=== PATIENT | female | born 1990 | race Caucasian/White ===

== ENCOUNTER 2016-08-01 00:41 | Emergency (ER) | payer OTHER ==
--- NOTE | 2016-08-01 04:28 | ED ORDER SUMMARY ---
..... Patient: BECKY LYNCH OrderSheet [facility] VisitID: [id number] [address] [place] [address] 26y, F Registration Date/Time: 08/01/2016 ORDER SHEET Weight: 81.6 kg Allergies: Oxycodone GENERAL ORDERS: CBC w Diff Urgent (:08/01/2016 Stefan Jasso) (Ack 1:23 ALawrence ER Tech1) (2:08 ALawrence ER Tech1) CMP Urgent (:08/01/2016 Stefan Jasso) (Ack 1:23 ALawrence ER Tech1) (2:08 ALawrence ER Tech1) UA-Culture if indicated Urgent (:08/01/2016 Stefan Jasso) (Ack 1:23 ALawrence ER Tech1) (2:35 EBonham) Urine Drug Screen Urgent (:08/01/2016 Stefan Jasso) (Ack 1:23 ALawrence ER Tech1) (2:35 EBonham) Urine Urgent (:08/01/2016 Stefan Jasso) (Ack 1:23 ALawrence ER Tech1) (2:35 EBonham) Ethyl Alcohol Urgent (:08/01/2016 Stefan Jasso) (Ack 1:25 ALawrence ER Tech1) (2:08 ALawrence ER Tech1) MEDICATION ORDERS: IV FLUIDS: Ativan IV 1 mg (HIGH ALERT MEDICATION, NOW) (:08/01/2016 Stefan Jasso) (1:57 EBonham) IV Saline Lock (:08/01/2016 Stefan Jasso) (1:56 EBonham) IV NS : initial bolus none -, then 1000 mL/hr for X1 (NOW) (02:51 08/01/2016 Stefan Jasso) (Ack 2:56 HSoule) (3:04 HSoule) ORDER SHEET NOTES: [Electronically signed by Diane Villareal (04:44 08/01/2016)] [Electronically signed by Doroteo Mcclendon Dr. (05:50 08/01/2016)] [Electronically locked/signed by Diane Villareal (04:44 08/01/2016)]
--- NOTE | 2016-08-01 04:28 | ED NURSING NOTES ---
Clinical Report - Nurses [facility] [address] [place] [address] 08/01/2016 0:44 Patient: BECKY LYNCH TRIAGE Triage time 0050. Acuity: LEVEL 3. Chief Complaint: ALTERED MENTAL STATUS. Alert. CARLOS COMA SCORE: Kyle Coma Scale: 9- eyes do not open (1); best verbal response- incoherent speech (2); best motor response- obeys commands (6). --01: Diane Villareal 00:59 08/01/16. BP: 116/65. HR: 85. RR: 24. O2 saturation: 95%. Pain level now 0/10. --01:02 Diane Villareal. Weight: 81.6 kg. Height/Length: 62 inches. BMI: 32.9. --00:58 Diane Villareal. Medications None. --01:00 Diane Villareal. Allergies Oxycodone. --01:00 Diane Villareal. History Arrived by private vehicle. Historian: family. Accompanied by family. This started just prior to arrival. ( Pt with large emesis and then began moaning, incomprehensible words, limp). Treatment [employer]: (EMS at scene and pt cleared to come by private vehicle). SOCIAL HX: Never smoker. Occasional alcohol use. History of drug use: marijuana. --01: Diane Villareal. PROBLEMS: Anxiety Reaction. --01: Diane Villareal. ADDITIONAL SURGERIES: Appendectomy. --01: Diane Villareal. Interventions ID band on patient. To treatment room. --01: Diane Villareal. PHYSICAL ASSESSMENT To room via wheelchair. Patient gowned. GENERAL / NEURO / PSYCH: Appears in distress. Decreased awareness. Patient's speech is abnormal. Patient appears well-nourished. RESPIRATORY: Respirations not labored. Breath sounds within normal limits. CVS: Normal sinus rhythm noted. Capillary refill less than 2 seconds. GI / : Abdomen soft and nontender. Bowel sounds within normal limits. SKIN: Skin is warm and dry. Normal skin turgor. --01:04 Diane Villareal. NURSING PROGRESS NOTES Call light placed in reach. Bed placed in lowest position. Brakes of bed on. Patient ready for evaluation- chart flagged. --01:05 Diane Villareal ( Failed hand drop test). --01:05 Diane Villareal EKG time: (00:58 AM). EKG was performed by a karlos and shown to the ED physician. --01:17 Ladonna Masters 01:25 08/01/2016 Site #1 started via IV in the left antecubital space with an 20g angiocath, with aseptic technique and good blood return; one attempt. Blood drawn: rainbow set. Labeled in the presence of the patient and sent to the lab. Saline lock flushed with 10 mL saline. --01:56 Diane Villareal 01:57 08/01/2016 Ativan (LORazepam) IVP 1 mg given. via site #1. Allergies verified, confirmed 5 rights and sedative warning given to the patient. IV patency established. IV site checked: no pain, redness, or swelling. IV flushed thoroughly pre- and post-medication administration. IVP given by RN. --:57 Diane Villareal 02:26 08/01/16. BP: 115/59. HR: 86. RR: 18. O2 saturation: 100%. --02:28 Diane Villareal In/out catheterization. During procedure hand hygiene observed and sterile equipment and aseptic technique used. Return of less than 50 mL yellow-colored clear urine; odor is normal. She tolerated procedure well. Patient ID band checked for patient name and birthdate: family confirmed. Instructions provided to collect clean catch urine. Catheterized urine collected; sample sent to lab for urinalysis, culture, drug screen and HCG. Specimen labeled in the presence of the patient. --02:28 Diane Villareal Reassessment after medication administered. She is calm and has had no adverse reaction. Overall patient status is improved- she states feels the same. --02:36 Diane Villareal 03:04 08/01/2016 Started bag #1 1000 mL IV Fluids IV NS (Saline); at 1000 mL/hr over 1 hour(s) via site #1. Allergies verified and confirmed 5 rights. IV patency established. IV site checked: no pain, redness, or swelling. IV flushed thoroughly pre- and post-medication administration. --03:04 Tucker Lisa The patient is calm and resting quietly. Overall patient status is the same- she states feels the same. --03:10 Diane Villareal ( Pt with wave motion hand shaking when touched and moved around, incomprehensible word, will awaken but not open eyes, moans on occasion). --03:11 Diane Villareal ( Discussed plan of care with patient. Patient family agreeable to plan. They will go home and request staff contact them as with patient status.). --04:05 TuckerQue barbournah 04:21 08/01/16. BP: 104/47. HR: 68. RR: 16. O2 saturation: 99%. --04:23 Diane Villareal Overall patient status is improved- she states feels better. ( Pt wide awake, fully conversing with staff, able to recall it starting as a panic attack, giggling, sts she wants to go home, Provider aware). --04:23 Diane Villareal ( Pt off monitor, ambulated without assistance around ER, ready to go, Fiance called for a ride). --04:34 Diane Villareal 04:34 08/01/2016 Site #1 removed upon discharge. Catheter intact. Pressure dressing applied. --04:34 Diane Villareal. DISPOSITION / DISCHARGE Departure time: 0. --04:43 Diane Villareal Condition at departure: improved and stable. No learning barriers present. Discharge instructions provided and reviewed with the patient. Reviewed medication(s). Patient verbalized understanding. Written instructions provided in Upper Sorbian. The patient was discharged by the physician. She was discharged home and accompanied by spouse. She left the Emergency Department ambulatory and via private vehicle. Spouse driving. --04:44 Diane Villareal. Locked/Released at 08/01/2016 4:44 by Diane Villareal,
--- NOTE | 2016-08-01 04:28 | ED ORDER SUMMARY ---
..... Patient: BECKY LYNCH OrderSheet [facility] VisitID: [id number] [address] [place] [address] 26y, F Registration Date/Time: 08/01/2016 ORDER SHEET Weight: 81.6 kg Allergies: Oxycodone GENERAL ORDERS: CBC w Diff Urgent (:08/01/2016 Stefan Jasso) (Ack 1:23 ALawrence ER Tech1) (2:08 ALawrence ER Tech1) CMP Urgent (:08/01/2016 Stefan Jasso) (Ack 1:23 ALawrence ER Tech1) (2:08 ALawrence ER Tech1) UA-Culture if indicated Urgent (:08/01/2016 Stefan Jasso) (Ack 1:23 ALawrence ER Tech1) (2:35 EBonham) Urine Drug Screen Urgent (:08/01/2016 Stefan Jasso) (Ack 1:23 ALawrence ER Tech1) (2:35 EBonham) Urine Urgent (:08/01/2016 Stefan Jasso) (Ack 1:23 ALawrence ER Tech1) (2:35 EBonham) Ethyl Alcohol Urgent (:08/01/2016 Stefan Jasso) (Ack 1:25 ALawrence ER Tech1) (2:08 ALawrence ER Tech1) MEDICATION ORDERS: IV FLUIDS: Ativan IV 1 mg (HIGH ALERT MEDICATION, NOW) (:08/01/2016 Stefan Jasso) (1:57 EBonham) IV Saline Lock (:08/01/2016 Stefan Jasso) (1:56 EBonham) IV NS : initial bolus none -, then 1000 mL/hr for X1 (NOW) (02:51 08/01/2016 Stefan Jasso) (Ack 2:56 HSoule) (3:04 HSoule) ORDER SHEET NOTES: [Electronically signed by Diane Villareal (04:44 08/01/2016)] [Electronically signed by Doroteo Mcclendon Dr. (05:50 08/01/2016)] [Electronically locked/signed by Diane Villareal (04:44 08/01/2016)]
--- NOTE | 2016-08-01 04:28 | ED CLINICAL REPORT ---
Clinical Report - Physicians/Mid Levels [facility] [address] [place] [address] 08/01/2016 0:44 Patient: BECKY LYNCH Time Seen: 00:47; initial patient contact. Arrived- By private vehicle. Historian- family. HISTORY OF PRESENT ILLNESS Chief Complaint: PALPITATIONS. This started just prior to arrival and is still present. Onset during emotional upset. It was abrupt in onset and has been constant. It is described as a fast and pounding heart beat. Modifying factors. Not worsened by anything. Not relieved by anything. No chest pain or discomfort, difficulty breathing or sweating episodes. She experienced syncope. ( Anxious). Similar symptoms previously: None. Recent medical care: Not recently seen/assessed. REVIEW OF SYSTEMS The patient has had nausea and vomiting. No abdominal pain, depression or diarrhea. She has had moderately altered mental status reported by family: stuporous. All systems otherwise negative, except as recorded above. PAST HISTORY Anxiety Reaction. SURGERIES: Appendectomy. SOCIAL HISTORY Never smoker. Occasional alcohol use. History of occasional drug use. ADDITIONAL NOTES The nursing notes have been reviewed. PHYSICAL EXAM Vital Signs: 08/01/2016 00:59 BP: 116/65. HR: 85. RR: 24. O2 saturation: 95%. Have been reviewed. Blood pressure normal. Heart rate normal. Tachypneic. Temperature normal. Oxygen saturation normal. Appearance: Patient in mild distress. Distress appears due to anxiety. Eyes: Pupils equal, round and reactive to light. Eyes normal inspection. ENT: Pharynx normal. Neck: Normal inspection. Neck supple. No meningeal signs. CVS: Normal heart rate and rhythm. Heart sounds normal. Respiratory: No respiratory distress. Breath sounds normal. Abdomen: Soft and nontender. Bowel sounds normal. No organomegaly. No mass. Skin: Skin warm and dry. Normal skin color. Extremities: No lower extremity edema. Neuro: Moderately altered mental status: stuporous. LABS, X-RAYS, AND EKG Laboratory Tests: UA-Culture if indicated: (VICKY: 08/01/2016 02:20) ( MsgRcvd 08/01/2016 02:42) Final results Test Result Flag Units (Reference) URINE COLOR YELLOW URINE APPEARANCE CLEAR URINE GLUCOSE NEGATIVE (NEGATIVE) URINE BILIRUBIN NEGATIVE (NEGATIVE) URINE KETONE NEGATIVE (NEGATIVE) URINE SPECIFIC GRAVITY >= 1.030 (1.010-1.030) URINE PH 5.5 (5.0-8.0) URINE PROTEIN NEGATIVE (NEGATIVE) URINE UROBILINOGEN 0.2 EU/dL (0.2-1.0) URINE NITRITE NEGATIVE (NEGATIVE) URINE BLOOD NEGATIVE (NEGATIVE) URINE LEUK ESTERASE NEGATIVE (NEGATIVE) URINE RBC RARE rbc/hpf (0-1) URINE WBC 0-1 wbc/hpf (0-1) URINE EPITHELIAL CELLS 0-1 EPI/hpf (0-5) URINE BACTERIA NONE SEEN (NONE SEEN) URINE COMMENT CULT NOT INDICATED 1+ MUCUSURINE CULTURES ARE SET-UP BASED ON THE FOLLOWING CRITERIA:POSITIVE NITRITEPOSITIVE LEUKOCYTE ESTERASEGREATER THAN 10 WHITE BLOOD CELLSMODERATE (2+) OR GREATER BACTERIA Urine: (VICKY: 08/01/2016 02:20) ( [facility] 08/01/2016 02:34) Final results Test Result Flag Units (Reference) URINE NEGATIVE CBC w Diff: (VICKY: 08/01/2016 01:00) ( [facility] 08/01/2016 01:31) Final results Test Result Flag Units (Reference) WHITE BLOOD COUNT 17.8 H K/uL (4.5-11.5) RED BLOOD COUNT 3.72 L M/uL (4.00-5.20) HEMOGLOBIN 11.0 L gm/dL (12.0-16.0) HEMATOCRIT 33.4 L % (36.0-46.0) MEAN CELL VOLUME 90 fL (80-100) MEAN CORPUSCULAR HGB 30 pg (26-34) MEAN CORPUSCULAR HGB CONC 33 g/dL (31-37) RED CELL DISTRIBUTION WIDTH 13.0 % (11.6-14.8) PLATELET COUNT 285 K/uL (150-400) NEUTROPHIL % 74.2 % (50-75) LYMPH % 20.8 L % (25-40) MONO % 4.1 % (3-14) EOSINOPHIL % 0.6 % (0-4) BASOPHIL % 0.3 % (0-2) Ethyl Alcohol: (VICKY: 08/01/2016 01:00) ( [facility] 08/01/[place] 01:42) Final results Test Result Flag Units (Reference) ETHYL ALCOHOL <3 L mg/dL (3-10) Urine Drug Screen: (VICKY: 08/01/2016 02:20) ( [facility] 08/01/2016 02:50) Final results Test Result Flag Units (Reference) AMPHETAMINE/METHAMPHETAMINE NEGATIVE (NEGATIVE) BARBITURATE NEGATIVE (NEGATIVE) BENZODIAZEPINE NEGATIVE (NEGATIVE) CANNABINOID POSITIVE H (NEGATIVE) COCAINE NEGATIVE (NEGATIVE) ECSTASY NEGATIVE (NEGATIVE) METHADONE NEGATIVE (NEGATIVE) OPIATE NEGATIVE (NEGATIVE) The urine drug screen is a qualitative screening test fordrug overdose and abuse. All screen results should beconsidered as presumptive.Drugs screened for are as follows:BenzodiazepinesCocaineAmphetamines/MetamphetaminesTHC (Tetrahydrocannabinol)OpiatesBarbituratesEcstasyMethadonePositive results are unconfirmed. For confirmation, notifythe lab for the specimen to be sent to the reference lab.All confirmations must be performed by a differentmethodology.The ingestion of natural herbal and plant productscontaining Ephedra/Ephedra metabolites can produce in urineone or more substances capable of cross reacting withamphetamine/methamphetamine immunoassays. These testsprovide a preliminary result only. A more specificalternative chemical method must be used to obtain aconfirmed analytical result. CMP: (VICKY: 08/01/2016 01:00) ( [facility] 08/01/2016 01:42) Final results Test Result Flag Units (Reference) GLUCOSE 172 H mg/dL (70-110) BUN 15 mg/dL (7-18) CREATININE 0.8 mg/dL (0.6-1.3) Estimated GFR >60 mL/min Estimated GFR- >60 mL/min Note: Persistent reduction over 3 months in eGFR<60 mL/min/1.73 m2 defines CKD. Patients with eGFR values>=60 mL/min/1.73 m2 may also have CKD if evidence ofpersistent proteinuria. Additional information may be foundat www.kidney.org. SODIUM 137 mmol/L (136-145) POTASSIUM 3.4 L mmol/L (3.5-5.1) CHLORIDE 101 mmol/L (98-107) CARBON DIOXIDE 25 mmol/L (21-32) CALCIUM 8.8 mg/dL (8.5-10.1) TOTAL PROTEIN 7.5 g/dL (6.4-8.2) ALBUMIN 3.6 g/dL (3.3-5.0) BILIRUBIN, TOTAL 0.2 mg/dL (0.0-1.0) ALKALINE PHOSPHATASE 50 U/L (46-116) AST (SGOT) 24 U/L (15-37) ALT (SGPT) 31 U/L (12-78) . PROGRESS AND PROCEDURES Course of Care: Pt'chuck gar' left with his mother and the pt almost immediately became completely lucid stating she was anxious and feels she had a panic attack. Disposition: Discharged home in good and improved condition. Condition: good. CLINICAL IMPRESSION Panic attack INSTRUCTIONS Your Current Medications: CONTINUE TAKING THE FOLLOWING MEDICATIONS: None*. Prescription Medications: Vistaril 50 mg: take 1 orally every 6 hours as needed for anxiety. Dispense twenty (20). No refill. Substitution is permissible. Follow-up: Follow up with your doctor in about two days. Call for an appointment. Screening today revealed the patient's blood pressure to be in the normal range. (Electronically signed by Doroteo Mcclendon Dr. 08/01/2016 5:50)
--- NOTE | 2016-08-01 05:50 | ED MED RECONCILIATION SUMMARY ---
Patient: BECKY LYNCH Medication Reconciliation Report [facility] VisitID: [id number] [address] [place] [address] 26y, F Registration Date/Time: 08/01/2016 Weight: 81.6 kg Height/Length: 62 in. BMI: 32.9 ALLERGIES: Oxycodone The patient's Home Medications are listed below: NONE. The source(s) of the original Home Medication information: Not obtained. The following Medications were given to the patient in the Emergency Department: Ativan [IVP] IVP 1 mg, administered: 08/01/2016 1:57:00 AM IV NS IV Fluids bolus 0, then 1000 mL/hr, administered: 08/01/2016 3:04:00 AM The following Medications were prescribed to the patient: Vistaril 50 mg: take 1 orally every 6 hours as needed for anxiety. Dispense twenty (20). No refill. Substitution is permissible. -- Doroteo Mcclendon Dr.
--- NOTE | 2016-08-01 05:50 | ED MAR SUMMARY ---
..... Medication Administration Record [facility] [address] [place] [address] Patient: BECKY LYNCH Visit ID: [id number] 26y, F Weight: 81.6 kg Height/Length: 62 in BMI: 32.9 ALLERGIES: Oxycodone Given 01:57 08/01/2016 Diane Villareal, Medication Administered: ATIVAN [IVP] (LORAZEPAM), Dose: 1 mg IVP, Site: #1 left AC. Medication Ordered: Ativan IV 1 mg (HIGH ALERT MEDICATION, NOW). Start 03:04 08/01/2016 Lisa Ceballos, Medication Administered: IV NS (SALINE), Dose: IV Fluids over 1 hour(s), Rate: 1000 mL/hr, Dispensed: 1000 mL bag, Site: #1 left AC. Medication Ordered: IV NS : initial bolus none -, then 1000 mL/hr for X1 (NOW).
--- NOTE | 2016-08-01 05:50 | ED MAR SUMMARY ---
..... Medication Administration Record [facility] [address] [place] [address] Patient: BECKY LYNCH Visit ID: [id number] 26y, F Weight: 81.6 kg Height/Length: 62 in BMI: 32.9 ALLERGIES: Oxycodone Given 01:57 08/01/2016 Diane Villareal, Medication Administered: ATIVAN [IVP] (LORAZEPAM), Dose: 1 mg IVP, Site: #1 left AC. Medication Ordered: Ativan IV 1 mg (HIGH ALERT MEDICATION, NOW). Start 03:04 08/01/2016 Lisa Ceballos, Medication Administered: IV NS (SALINE), Dose: IV Fluids over 1 hour(s), Rate: 1000 mL/hr, Dispensed: 1000 mL bag, Site: #1 left AC. Medication Ordered: IV NS : initial bolus none -, then 1000 mL/hr for X1 (NOW).
--- NOTE | 2016-08-01 05:50 | ED MED RECONCILIATION SUMMARY ---
Patient: BECKY LYNCH Medication Reconciliation Report [facility] VisitID: [id number] [address] [place] [address] 26y, F Registration Date/Time: 08/01/2016 Weight: 81.6 kg Height/Length: 62 in. BMI: 32.9 ALLERGIES: Oxycodone The patient's Home Medications are listed below: NONE. The source(s) of the original Home Medication information: Not obtained. The following Medications were given to the patient in the Emergency Department: Ativan [IVP] IVP 1 mg, administered: 08/01/2016 1:57:00 AM IV NS IV Fluids bolus 0, then 1000 mL/hr, administered: 08/01/2016 3:04:00 AM The following Medications were prescribed to the patient: Vistaril 50 mg: take 1 orally every 6 hours as needed for anxiety. Dispense twenty (20). No refill. Substitution is permissible. -- Doroteo Mcclendon Dr.
--- NOTE | 2016-08-01 05:50 | ED DISCHARGE INSTRUCTIONS ---
Patient: BECKY LYNCH General Instructions [facility] VisitID: [id number] [place] [address] 26y, F Registration Date/Time: 08/01/2016 Panic attack INSTRUCTIONS Your Current Medications: CONTINUE TAKING THE FOLLOWING MEDICATIONS: None*. Prescription Medications: Vistaril 50 mg: take 1 orally every 6 hours as needed for anxiety. Dispense twenty (20). No refill. Substitution is permissible. Follow-up: Follow up with your doctor in about two days. Call for an appointment. Screening today revealed the patient's blood pressure to be in the normal range. ADDITIONAL INFORMATION Panic Attack A panic attack is an extreme fear reaction that comes on for no apparent reason. Symptoms may include pounding or racing heartbeat, shortness of breath, dizziness, weakness and sweating. There is usually a fear that something terrible will happen or that you may . The attack may last a few minutes up to a few hours. Between attacks things will seem quite normal. This condition has a psychological cause and can be treated with the help of a therapist or psychiatrist. Medication is often used and can be very helpful for this problem. Home Care: Try to identify the sources of stress in your life. It may not be obvious! These may include: Daily hassles of life which pile up (traffic jams, missed appointments, car troubles, etc.). Major life changes, both good (new baby, job promotion) and bad (loss of job, loss of loved one). Overload: feeling that you have too many responsibilities and can't take care of everything at once. Helplessness: feeling like your problems are too much for you to handle. Notice how your body reacts to stress. Learn to listen to your body signals so that you can take action before the stress becomes severe. When possible, AVOID or REDUCE THE CAUSE OF STRESS. Avoid hassles, limit the amount of change that is happening in your life at one time or take a break when you feel overloaded. Unfortunately, many stressful situations cannot be avoided. Therefore, it is necessary to LEARN HOW TO MANAGE STRESS better. There are many proven methods that work and will reduce your anxiety. These include simple things like exercise, good nutrition and adequate rest. Also, there are certain techniques that are helpful: relaxation and breathing exercises, visualization, biofeedback, meditation or simply taking some time-out to clear your mind. For more information about this, consult your doctor or go to a local bookstore and review the many books and tapes available on this subject. Follow Up with your doctor or a therapist as advised. Get Prompt Medical Attention if any of the following occur: Worsening of your symptoms to the point of feeling [id number] A change in the type of pain: if it feels different, becomes more severe, lasts longer, or begins to spread into your shoulder, arm, neck, jaw or back Shortness of breath or increased pain with breathing Increasing feeling of weakness or dizziness Fainting Cough with dark colored sputum (phlegm) or blood Fever of 100.4F (38C) or higher, or as directed by your healthcare provider Swelling, pain or redness in one leg Hydroxyzine Pamoate Oral capsule What is this medicine? HYDROXYZINE (oc DROX i zeen) is an antihistamine. This medicine is used to treat allergy symptoms. It is also used to treat anxiety and tension. This medicine can be used with other medicines to induce sleep before surgery. How should I use this medicine? Take this medicine by mouth with a full glass of water. Follow the directions on the prescription label. You may take this medicine with food or on an empty stomach. Take your medicine at regular intervals. Do not take your medicine more often than directed. Talk to your professor of practice regarding the use of this medicine in children. Special care may be needed. While this drug may be prescribed for children as young as 6 years of age for selected conditions, precautions do apply. Patients over 65 years old may have a stronger reaction and need a smaller dose. What side effects may I notice from receiving this medicine? Side effects that you should report to your doctor or health home care manager as soon as possible: fast or irregular heartbeat difficulty passing urine seizures slurred speech or confusion tremor Side effects that usually do not require medical attention (report to your doctor or health home care manager if they continue or are bothersome): constipation drowsiness fatigue headache stomach upset What may interact with this medicine? alcohol barbiturate medicines for sleep or seizures medicines for colds, allergies medicines for depression, anxiety, or emotional disturbances medicines for pain medicines for sleep muscle relaxants What if I miss a dose? If you miss a dose, take it as soon as you can. If it is almost time for your next dose, take only that dose. Do not take double or extra doses. Where should I keep my medicine? Keep out of the reach of children. Store at room temperature between 15 and 30 degrees C (59 and 86 degrees F). Keep container tightly closed. Throw away any unused medicine after the expiration date. What should I tell my health care provider before I take this medicine? They need to know if you have any of these conditions: any chronic illness difficulty passing urine glaucoma heart disease kidney disease liver disease lung disease an unusual or allergic reaction to hydroxyzine, cetirizine, other medicines, foods, dyes, or preservatives or trying to get breast-feeding What should I watch for while using this medicine? Tell your doctor or health home care manager if your symptoms do not improve. You may get drowsy or dizzy. Do not drive, use machinery, or do anything that needs mental alertness until you know how this medicine affects you. Do not stand or sit up quickly, especially if you are an older patient. This reduces the risk of dizzy or fainting spells. Alcohol may interfere with the effect of this medicine. Avoid alcoholic drinks. Your mouth may get dry. Chewing sugarless gum or sucking hard candy, and drinking plenty of water may help. Contact your doctor if the problem does not go away or is severe. This medicine may cause dry eyes and blurred vision. If you wear contact lenses you may feel some discomfort. Lubricating drops may help. See your eye doctor if the problem does not go away or is severe. If you are receiving skin tests for allergies, tell your doctor you are using this medicine. You have been given the following additional information: Panic Attack Hydroxyzine Pamoate Oral capsule (Electronically signed by Doroteo Mcclendon Dr. 08/01/2016 5:50)
--- NOTE | 2016-08-01 05:50 | ED DISCHARGE INSTRUCTIONS ---
Patient: BECKY LYNCH General Instructions [facility] VisitID: [id number] [place] [address] 26y, F Registration Date/Time: 08/01/2016 Panic attack INSTRUCTIONS Your Current Medications: CONTINUE TAKING THE FOLLOWING MEDICATIONS: None*. Prescription Medications: Vistaril 50 mg: take 1 orally every 6 hours as needed for anxiety. Dispense twenty (20). No refill. Substitution is permissible. Follow-up: Follow up with your doctor in about two days. Call for an appointment. Screening today revealed the patient's blood pressure to be in the normal range. ADDITIONAL INFORMATION Panic Attack A panic attack is an extreme fear reaction that comes on for no apparent reason. Symptoms may include pounding or racing heartbeat, shortness of breath, dizziness, weakness and sweating. There is usually a fear that something terrible will happen or that you may . The attack may last a few minutes up to a few hours. Between attacks things will seem quite normal. This condition has a psychological cause and can be treated with the help of a therapist or psychiatrist. Medication is often used and can be very helpful for this problem. Home Care: Try to identify the sources of stress in your life. It may not be obvious! These may include: Daily hassles of life which pile up (traffic jams, missed appointments, car troubles, etc.). Major life changes, both good (new baby, job promotion) and bad (loss of job, loss of loved one). Overload: feeling that you have too many responsibilities and can't take care of everything at once. Helplessness: feeling like your problems are too much for you to handle. Notice how your body reacts to stress. Learn to listen to your body signals so that you can take action before the stress becomes severe. When possible, AVOID or REDUCE THE CAUSE OF STRESS. Avoid hassles, limit the amount of change that is happening in your life at one time or take a break when you feel overloaded. Unfortunately, many stressful situations cannot be avoided. Therefore, it is necessary to LEARN HOW TO MANAGE STRESS better. There are many proven methods that work and will reduce your anxiety. These include simple things like exercise, good nutrition and adequate rest. Also, there are certain techniques that are helpful: relaxation and breathing exercises, visualization, biofeedback, meditation or simply taking some time-out to clear your mind. For more information about this, consult your doctor or go to a local bookstore and review the many books and tapes available on this subject. Follow Up with your doctor or a therapist as advised. Get Prompt Medical Attention if any of the following occur: Worsening of your symptoms to the point of feeling [id number] A change in the type of pain: if it feels different, becomes more severe, lasts longer, or begins to spread into your shoulder, arm, neck, jaw or back Shortness of breath or increased pain with breathing Increasing feeling of weakness or dizziness Fainting Cough with dark colored sputum (phlegm) or blood Fever of 100.4F (38C) or higher, or as directed by your healthcare provider Swelling, pain or redness in one leg Hydroxyzine Pamoate Oral capsule What is this medicine? HYDROXYZINE (oc DROX i zeen) is an antihistamine. This medicine is used to treat allergy symptoms. It is also used to treat anxiety and tension. This medicine can be used with other medicines to induce sleep before surgery. How should I use this medicine? Take this medicine by mouth with a full glass of water. Follow the directions on the prescription label. You may take this medicine with food or on an empty stomach. Take your medicine at regular intervals. Do not take your medicine more often than directed. Talk to your manager metrology regarding the use of this medicine in children. Special care may be needed. While this drug may be prescribed for children as young as 6 years of age for selected conditions, precautions do apply. Patients over 65 years old may have a stronger reaction and need a smaller dose. What side effects may I notice from receiving this medicine? Side effects that you should report to your doctor or health farm or ranch animal caretaker as soon as possible: fast or irregular heartbeat difficulty passing urine seizures slurred speech or confusion tremor Side effects that usually do not require medical attention (report to your doctor or health farm or ranch animal caretaker if they continue or are bothersome): constipation drowsiness fatigue headache stomach upset What may interact with this medicine? alcohol barbiturate medicines for sleep or seizures medicines for colds, allergies medicines for depression, anxiety, or emotional disturbances medicines for pain medicines for sleep muscle relaxants What if I miss a dose? If you miss a dose, take it as soon as you can. If it is almost time for your next dose, take only that dose. Do not take double or extra doses. Where should I keep my medicine? Keep out of the reach of children. Store at room temperature between 15 and 30 degrees C (59 and 86 degrees F). Keep container tightly closed. Throw away any unused medicine after the expiration date. What should I tell my health care provider before I take this medicine? They need to know if you have any of these conditions: any chronic illness difficulty passing urine glaucoma heart disease kidney disease liver disease lung disease an unusual or allergic reaction to hydroxyzine, cetirizine, other medicines, foods, dyes, or preservatives or trying to get breast-feeding What should I watch for while using this medicine? Tell your doctor or health farm or ranch animal caretaker if your symptoms do not improve. You may get drowsy or dizzy. Do not drive, use machinery, or do anything that needs mental alertness until you know how this medicine affects you. Do not stand or sit up quickly, especially if you are an older patient. This reduces the risk of dizzy or fainting spells. Alcohol may interfere with the effect of this medicine. Avoid alcoholic drinks. Your mouth may get dry. Chewing sugarless gum or sucking hard candy, and drinking plenty of water may help. Contact your doctor if the problem does not go away or is severe. This medicine may cause dry eyes and blurred vision. If you wear contact lenses you may feel some discomfort. Lubricating drops may help. See your eye doctor if the problem does not go away or is severe. If you are receiving skin tests for allergies, tell your doctor you are using this medicine. You have been given the following additional information: Panic Attack Hydroxyzine Pamoate Oral capsule (Electronically signed by Doroteo Mcclendon Dr. 08/01/2016 5:50)
== END 2016-08-01 04:40 | disposition home or self-care (01) ==
LOC: ED SRH 00:41
DX: F41.0 Panic disorder [episodic paroxysmal anxiety] (principal)
CPT/HCPCS: 81460; 90004; 90100; 92010; 92760; 92761; 92762; 92763; 92764; 92765; 92766; 92767; 93070; 95059